=== PATIENT | female | born 1990 | race Caucasian/White ===

== ENCOUNTER 2018-07-11 07:18 | Observation (INO) | payer MEDICAID ==
[2018-07-11] MEDS ORDERED: NS 1,000 ML IV ONE ×2 (07:34→08:51)
--- NOTE | 2018-07-11 07:44 | EDPHY ---
HPI/HX/ROS/PE/MDM Narrative: CHIEF COMPLAINT: Abdominal pain, nausea, vomiting HPI: This patient is a 27 year old female who is currently 12 weeks . She complains of nausea, vomiting, and generalized abdominal pain ongoing since about 22:00 last night. Per mother, she has been unable to keep down food or liquids. Mother states the patient had nausea and diarrhea yesterday as well. 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 She had a positive urine test recently when she was enrolled in the [facility] for history of opiate abuse. She is currently in a methadone program and reportedly was able to take her pill this morning as usual. The patient does not have any care yet as she is waiting for a medicaid interview. No hematemesis, hematochezia, melena, vaginal bleeding. HPI obtained primarily from patient's mother at bedside. REVIEW OF SYSTEMS: A comprehensive 10 system review of systems is otherwise negative aside from elements mentioned in the history of present illness and medical decision making. PMH: (12 weeks ). Appendectomy. Scoliosis. SOCIAL HISTORY: Mother at bedside. Recently came back to [place] from [place]. History of opioid abuse, currently enrolled in methadone program. Nonsmoker. PHYSICAL EXAM: General:Patient is somnolent, in no acute distress. ENT:Eyes are normal to inspection. ENT inspection normal. Neck: Normal inspection. Full range of motion. Respiratory:No respiratory distress. Breath sounds normal bilaterally. Cardiovascular: Regular rate and rhythm. Strong peripheral pulses. Normal cap refill. Abdomen:The abdomen is nontender to palpation. There are no peritoneal signs. There are normal bowel sounds. Back: Normal to inspection. No tenderness to palpation. Skin: Normal color. No rash. Warm and dry. Extremities: Normal appearance. Full range of motion. Neuro: Oriented x3. Normal motor function. Normal sensory function. ED Course: 27 y/o female presents with persistent nausea and vomiting ongoing since last night. Plan for fluids, antiemetics, obstetrics ultrasound. 9:[address] Wells, radiologist. Ultrasound shows living IUP, about 10 weeks 4 days. HR 146. Patient declined a full exam, ovaries not visualized. 11:30 Reassessed. Patient is still nauseous and continues to have episodes of emesis. 12:50 Reassessed. Patient continues to feel unwell. She and her mother do not feel her symptoms can be managed adequately at home. Plan to admit. 13:14 Consulted with hospitalist service. Dr. Easton accepts admission. 13:30 Hospitalist service prefers that this patient be managed by OB as well. Plan to consult with admitting OB physician military education coordinator. 13:[address] Ortiz, dry cleaning supervisor specialist. She will consult. MDM: This patient presents primarily with vomiting and diarrhea in the setting of early and issues related to opiate addiction and methadone use. It is unclear whether the primary factor leading to symptoms is or an acute GI illness, but there is certainly a component of narcotic withdrawal as well given oral methadone use. Her abdomen is benign on my exam and she is obviously not an appropriate candidate for CT imaging of the abdomen. We rehydrated her and tried several rounds of anti-emetics but patient remains unable to tolerate PO. Given ongoing vomiting and unclear etiology of symptoms , we will admit her for further workup. At this point I have a low suspicion for appendicitis, cholecystitis or other acute pathology, but patient's workup has been somewhat limited by non-cooperation with exam (her mother essentially provides all history) and the fact that she has been unable to produce stool to allow for a GI pathogen panel to exclude norovirus etc. - Data Points Imaging Results: Imaging Impressions Obstetrics Ultrasound 07/11/18 08:08 Impression: 1. Single living intrauterine gestation with EGA 10 weeks and 4 days. Estimated date of delivery is February 02, 2018. 2. No free fluid. Ovaries not assessed. Findings discussed with terrie Rosenthalibkenneth working with physician Meir Whitney MD on 07/11/2018 at 9:13 a.m. Imaging: Discussed imaging studies w/ scallop binder Radiologist Laboratory Results: Laboratory Results 07/11/18 07:55 07/11/18 07:55 07/11/18 07/11/18 07/11/18 10:45 07:55 07:55 WBC RBC Hgb Hct MCV MCH MCHC RDW Plt Count MPV Neut % (Auto) Lymph % (Auto) [place] % (Auto) Eos % (Auto) Baso % (Auto) Nucleat RBC Rel Count Absolute Neuts (auto) Absolute Lymphs (auto) Absolute Monos (auto) Absolute Eos (auto) Absolute Basos (auto) Absolute Nucleated RBC Immature Gran % Immature Gran # RBC/WBC/PLT Morphology Platelet Estimate PT 13.8 SEC SEC (12.0-15.0) INR 1.04 (0.83-1.16) APTT 28.0 SEC SEC (23.0-38.0) Sodium Potassium Chloride Carbon Dioxide Anion Gap BUN Creatinine Estimated GFR Glucose Calcium Total Bilirubin 0.5 mg/dL mg/dL (0.1-1.4) Conjugated Bilirubin 0.5 mg/dL mg/dL (0.0-0.5) Unconjugated Bilirubin 0.0 mg/dL mg/dL (0.0-1.1) AST 18 IU/L IU/L (14-46) ALT 16 IU/L IU/L (9-52) Alkaline Phosphatase 66 IU/L IU/L (38-126) Total Protein 7.8 g/dL g/dL (6.3-8.2) Albumin 4.6 g/dL g/dL (3.5-5.0) Lipase 82 IU/L IU/L (23-300) Urine Color YELLOW Urine Appearance HAZY Urine pH 5.0 (5.0-7.5) Ur Specific [place] 1.024 (1.002-1.030) Urine Protein NEGATIVE (NEGATIVE) Urine Ketones 2+ H (NEGATIVE) Urine Blood NEGATIVE (NEGATIVE) Urine Nitrate NEGATIVE (NEGATIVE) Urine Bilirubin NEGATIVE (NEGATIVE) Urine Urobilinogen NEGATIVE EU EU (0.2-1.0) Ur Leukocyte Esterase NEGATIVE (NEGATIVE) Urine Glucose NEGATIVE (NEGATIVE) 07/11/18 07/11/18 07:55 07:55 WBC 12.88 10^3/uL H 10^3/uL (3.80-9.50) RBC 4.86 10^6/uL 10^6/uL (4.18-5.33) Hgb 12.8 g/dL g/dL (12.6-16.3) Hct 39.6 % % (38.0-47.0) MCV 81.5 fL fL (81.5-99.8) MCH 26.3 pg L pg (27.9-34.1) MCHC 32.3 g/dL L g/dL (32.4-36.7) RDW 15.3 % H % (11.5-15.2) Plt Count 306 10^3/uL 10^3/uL (150-400) MPV 10.0 fL fL (8.7-11.7) Neut % (Auto) 95.1 % H % (39.3-74.2) Lymph % (Auto) 3.5 % L % (15.0-45.0) [place] % (Auto) 0.9 % L % (4.5-13.0) Eos % (Auto) 0.0 % L % (0.6-7.6) Baso % (Auto) 0.2 % L % (0.3-1.7) Nucleat RBC Rel Count 0.0 % % (0.0-0.2) Absolute Neuts (auto) 12.25 10^3/uL H 10^3/uL (1.70-6.50) Absolute Lymphs (auto) 0.45 10^3/uL L 10^3/uL (1.00-3.00) Absolute Monos (auto) 0.12 10^3/uL L 10^3/uL (0.30-0.80) Absolute Eos (auto) 0.00 10^3/uL L 10^3/uL (0.03-0.40) Absolute Basos (auto) 0.03 10^3/uL 10^3/uL (0.02-0.10) Absolute Nucleated RBC 0.00 10^3/uL 10^3/uL (0-0.01) Immature Gran % 0.3 % % (0.0-1.1) Immature Gran # 0.04 10^3/uL 10^3/uL (0.00-0.10) RBC/WBC/PLT Morphology TNP Platelet Estimate TNP PT INR APTT Sodium 139 mEq/L mEq/L (135-145) Potassium 4.5 mEq/L mEq/L (3.5-5.2) Chloride 108 mEq/L mEq/L (97-110) Carbon Dioxide 18 mEq/l L mEq/l (22-31) Anion Gap 13 mEq/L mEq/L (6-14) BUN 13 mg/dL mg/dL (7-23) Creatinine 0.5 mg/dL L mg/dL (0.6-1.0) Estimated GFR > 60 Glucose 118 mg/dL H mg/dL (70-100) Calcium 9.7 mg/dL mg/dL (8.5-10.4) Total Bilirubin Conjugated Bilirubin Unconjugated Bilirubin AST ALT Alkaline Phosphatase Total Protein Albumin Lipase Urine Color Urine Appearance Urine pH Ur Specific [place] Urine Protein Urine Ketones Urine Blood Urine Nitrate Urine Bilirubin Urine Urobilinogen Ur Leukocyte Esterase Urine Glucose Medications Given: Discontinued Medications Sodium Chloride (Ns) 1,000 mls @ 0 mls/hr IV EDNOW ONE; Wide Open PRN Reason: Protocol Stop: 07/11/18 07:35 Last Admin: 07/11/18 07:59 Dose: 1,000 mls Sodium Chloride (Ns) 1,000 mls @ 0 mls/hr IV EDNOW ONE; Wide Open PRN Reason: Protocol Stop: 07/11/18 08:52 Last Admin: 07/11/18 08:56 Dose: 1,000 mls Sodium Chloride (Ns) 500 mls @ 0 mls/hr IV ONCE ONE PRN Reason: Wide Open Stop: 07/11/18 11:47 Last Admin: 07/11/18 11:47 Dose: 500 mls Metoclopramide HCl (Reglan Injection) 10 mg IVP EDNOW ONE Stop: 07/11/18 11:34 Last Admin: 07/11/18 11:42 Dose: 10 mg Ondansetron HCl (Zofran) 4 mg IVP EDNOW ONE Stop: 07/11/18 08:04 Last Admin: 07/11/18 08:10 Dose: 4 mg Ondansetron HCl (Zofran) 4 mg IVP EDNOW ONE Stop: 07/11/18 08:52 Last Admin: 07/11/18 08:56 Dose: 4 mg General Time Seen by Provider: 07/11/18 07:39 Initial Vital Signs: Initial Vital Signs Temperature (C) 36.8 C 07/11/18 07:24 Heart Rate 86 07/11/18 07:24 Respiratory Rate 16 07/11/18 07:24 Blood Pressure 132/90 H 07/11/18 07:24 O2 Sat (%) 93 07/11/18 07:24 O2 Delivery Mode Room Air Allergies/Adverse Reactions: No Known Allergies Allergy (Verified 07/11/18 14:17) Home Medications: Medication Instructions Recorded Dicyclomine [Bentyl 20 MG (*)] 20 mg PO QID PRN 02/13/19 Herbals/Supplements -Info Only 1 ea PO DAILY 07/11/18 Methadone HCl [Methadone HCl 10 mg 40 mg PO DAILY06 07/11/18 (*)] Ondansetron Odt [Zofran Odt 4 mg 4 mg PO BID PRN 07/11/18 (*)] Departure - Departure Disposition: [facility] Inpatient Acute Clinical Impression: Intrauterine Nausea & vomiting Qualifiers: Vomiting type: unspecified Vomiting Intractability: intractable Qualified Code( s): R11.2 - Nausea with vomiting, unspecified Condition: Fair Report Scribed for: Meir Whitney Report Scribed by: Aranza Jose Date of Report: 07/11/18 Time of Report: 07:44 Physician Review and Approval Statement: Portions of this note were transcribed by an ED scribe. I personally performed the history, physical exam, and medical decision making; and confirm the accuracy of the information in the transcribed note.
[2018-07-11] MEDS ORDERED: ONDANSETRON 4 MG/2 ML VIAL IVP ONE ×2 (08:03→08:51)
[2018-07-11 08:17] LABS: PLATELET COUNT 306 10^3/uL (150-400)
[2018-07-11 08:27] LABS: INR 1.04 (0.83-1.16); PROTIME(PATIENT) 13.8 SEC (12.0-15.0)
[2018-07-11] MEDS ORDERED: METOCLOPRAMIDE 10 MG/2 ML VIAL IVP ONE (11:33)
[2018-07-11] MEDS ORDERED: NS 500 ML IV ONE (11:46)
[2018-07-11] MEDS ORDERED: ONDANSETRON DISINTEGRATING 4 MG TAB PO PRN (14:51)
[2018-07-11] MEDS ORDERED: ACETAMINOPHEN 325 MG TAB PO PRN (14:51)
--- NOTE | 2018-07-11 14:59 | PDGENHP ---
History and Physical - Chief Complaint Nausea vomiting - History of Present Illness Patient is a 27-year-old female with past medical history of heroin abuse currently on methadone, and 10 weeks , who presented to the emergency room with 24 hr of nausea and vomiting. Patient just moved out here from [place] where she was apparently using heroin by snorting it. Three days ago she established care with a physician group here where she was started on methadone 40 mg daily. She saw her physician yesterday due to some mild nausea and vomiting and a test was obtained that was positive. She continued to have nausea and vomiting overnight and has not been able to keep anything down. She has not had any diarrhea. She does say that she has some mid epigastric abdominal pain. The pain is sharp and nonradiating and located in her mid epigastrium. The pain is worse with palpation and with retching. Her emesis is bile colored. She thinks she may have had some subjective fevers and chills over night. She denies any dysuria hematuria chest pain cough or other symptoms. She was given multiple doses of Zofran that were minimally effective in reducing her nausea and vomiting. In the emergency room an ultrasound was obtained that showed a viable intrauterine at about 10 weeks gestation. History Information - Allergies/Home Medication List Allergies/Adverse Reactions: No Known Allergies Allergy (Verified 07/11/18 14:17) Home Medications: Dicyclomine [Bentyl 20 MG (*)] 20 mg PO QID PRN 07/11/18 [Last Taken 07/10/18] Herbals/Supplements -Info Only 1 ea PO DAILY 07/11/18 [Last Taken Unknown] METHADONE HCL 07/11/18 [Last Taken Unknown] Ondansetron Odt [Zofran Odt 4 mg (*)] 4 mg PO BID PRN 07/11/18 [Last Taken 07/10] I have personally reviewed and updated: family history, medical history, social history, surgical history - Past Medical History Additional medical history: Heroin abuse - Surgical History Reports: no pertinent surgical hx - Family History Positive for: non-pertinent - Social History Smoking Status: Never smoked Review of Systems Review of Systems: Physical Exam Physical Exam: Temp Pulse Resp BP Pulse Ox 36.8 C 78 18 121/74 H 96 07/11/18 07:24 07/11/18 14:21 07/11/18 14:21 07/11/18 14:21 07/11/18 14:21 Constitutional: no apparent distress, appears nourished, not in pain Eyes: PERRL, anicteric sclera, EOMI Ears, Nose, Mouth, Throat: moist mucous membranes, hearing normal, ears appear normal, no oral mucosal ulcers Cardiovascular: regular rate and rhythym, no murmur, rub, or gallop, No edema Respiratory: no respiratory distress, no rales or rhonchi, clear to auscultation Gastrointestinal: tenderness, No guarding (Decreased bowel sounds, tender to palpation diffusely) Genitourinary: no bladder fullness, no bladder tenderness Skin: warm, normal color, no rashes or abrasions, no fluctuance, no induration, No mottled Musculoskeletal: full muscle strength, no muscle tenderness, normal joint ROM, no joint effusions Psychiatric: interacting appropriately, not anxious, not encephalopathic, thought process linear Lymph, Heme, Immunologic: no cervical LAD, no supraclavicular LAD Lab Data & Imaging Review 07/11/18 07:55 07/11/18 07:55 WBC 12.88 10^3/uL (3.80-9.50) H 07/11/18 07:55 RBC 4.86 10^6/uL (4.18-5.33) 07/11/18 07:55 Hgb 12.8 g/dL (12.6-16.3) 07/11/18 07:55 Hct 39.6 % (38.0-47.0) 07/11/18 07:55 MCV 81.5 fL (81.5-99.8) 07/11/18 07:55 MCH 26.3 pg (27.9-34.1) L 07/11/18 07:55 MCHC 32.3 g/dL (32.4-36.7) L 07/11/18 07:55 RDW 15.3 % (11.5-15.2) H 07/11/18 07:55 Plt Count 306 10^3/uL (150-400) 07/11/18 07:55 MPV 10.0 fL (8.7-11.7) 07/11/18 07:55 Neut % (Auto) 95.1 % (39.3-74.2) H 07/11/18 07:55 Lymph % (Auto) 3.5 % (15.0-45.0) L 07/11/18 07:55 [place] % (Auto) 0.9 % (4.5-13.0) L 07/11/18 07:55 Eos % (Auto) 0.0 % (0.6-7.6) L 07/11/18 07:55 Baso % (Auto) 0.2 % (0.3-1.7) L 07/11/18 07:55 Nucleat RBC Rel Count 0.0 % (0.0-0.2) 07/11/18 07:55 Absolute Neuts (auto) 12.25 10^3/uL (1.70-6.50) H 07/11/18 07:55 Absolute Lymphs (auto) 0.45 10^3/uL (1.00-3.00) L 07/11/18 07:55 Absolute Monos (auto) 0.12 10^3/uL (0.30-0.80) L 07/11/18 07:55 Absolute Eos (auto) 0.00 10^3/uL (0.03-0.40) L 07/11/18 07:55 Absolute Basos (auto) 0.03 10^3/uL (0.02-0.10) 07/11/18 07:55 Absolute Nucleated RBC 0.00 10^3/uL (0-0.01) 07/11/18 07:55 Immature Gran % 0.3 % (0.0-1.1) 07/11/18 07:55 Immature Gran # 0.04 10^3/uL (0.00-0.10) 07/11/18 07:55 RBC/WBC/PLT Morphology TNP 07/11/18 07:55 Platelet Estimate TNP 07/11/18 07:55 PT 13.8 SEC (12.0-15.0) 07/11/18 07:55 INR 1.04 (0.83-1.16) 07/11/18 07:55 APTT 28.0 SEC (23.0-38.0) 07/11/18 07:55 Sodium 139 mEq/L (135-145) 07/11/18 07:55 Potassium 4.5 mEq/L (3.5-5.2) 07/11/18 07:55 Chloride 108 mEq/L (97-110) 07/11/18 07:55 Carbon Dioxide 18 mEq/l (22-31) L 07/11/18 07:55 Anion Gap 13 mEq/L (6-14) 07/11/18 07:55 BUN 13 mg/dL (7-23) 07/11/18 07:55 Creatinine 0.5 mg/dL (0.6-1.0) L 07/11/18 07:55 Estimated GFR > 60 07/11/18 07:55 Glucose 118 mg/dL (70-100) H 07/11/18 07:55 Calcium 9.7 mg/dL (8.5-10.4) 07/11/18 07:55 Total Bilirubin 0.5 mg/dL (0.1-1.4) 07/11/18 07:55 Conjugated Bilirubin 0.5 mg/dL (0.0-0.5) 07/11/18 07:55 Unconjugated Bilirubin 0.0 mg/dL (0.0-1.1) 07/11/18 07:55 AST 18 IU/L (14-46) 07/11/18 07:55 ALT 16 IU/L (9-52) 07/11/18 07:55 Alkaline Phosphatase 66 IU/L (38-126) 07/11/18 07:55 Total Protein 7.8 g/dL (6.3-8.2) 07/11/18 07:55 Albumin 4.6 g/dL (3.5-5.0) 07/11/18 07:55 Lipase 82 IU/L (23-300) 07/11/18 07:55 Urine Color YELLOW 07/11/18 10:45 Urine Appearance HAZY 07/11/18 10:45 Urine pH 5.0 (5.0-7.5) 07/11/18 10:45 Ur Specific [place] 1.024 (1.002-1.030) 07/11/18 10:45 Urine Protein NEGATIVE (NEGATIVE) 07/11/18 10:45 Urine Ketones 2+ (NEGATIVE) H 07/11/18 10:45 Urine Blood NEGATIVE (NEGATIVE) 07/11/18 10:45 Urine Nitrate NEGATIVE (NEGATIVE) 07/11/18 10:45 Urine Bilirubin NEGATIVE (NEGATIVE) 07/11/18 10:45 Urine Urobilinogen NEGATIVE EU (0.2-1.0) 07/11/18 10:45 Ur Leukocyte Esterase NEGATIVE (NEGATIVE) 07/11/18 10:45 Urine Glucose NEGATIVE (NEGATIVE) 07/11/18 10:45 Assessment & Plan Assessment: 27-year-old female with past medical history of heroin abuse, currently on methadone, admitted with intractable nausea and vomiting Intrauterine (Acute)-human chorionic gonadotropin positive for by urine test. Ultrasound confirmed intrauterine with heartbeat of 145. Estimated gestational age of about 10 weeks 4 days. -Ob consulted for management considering she is high risk on methadone Nausea & vomiting (intractable)-likely related to , does not meet requirement for hyperemesis. Could be related to recent starting of methadone. She has a leukocytosis. I discussed the case with the emergency room physician and requested of Obstetrics be consulted. I reviewed the ultrasound which does show a viable intrauterine . -intravenous saline -p.r.n. Zofran -continue home methadone dose once confirmed (if okay with OB) -consult Ob -defer further management to Obstetrics PPX- SCDS, No heparin Fluids- IV saline Lytes- WNL Nutrition- clears Cor- Full Dispo- observation for NV
[2018-07-11] MEDS ORDERED: ACETAMINOPHEN 650 MG SUPP PR PRN (15:15)
[2018-07-11] MEDS: METOCLOPRAMIDE 10 MG/2 ML VIAL IVP SCH ×3 (17:26→23:28)
[2018-07-11] MEDS: PYRIDOXINE HCL 25 MG TAB PO SCH ×2 (17:56→23:00)
--- NOTE | 2018-07-11 19:25 | PDCONSULT ---
It Sales Executive Note: Obstetrics Consult from ED/Hospitalist service. 37 at 10w4d gestation by US done today, admitted for intractable N/V. Was found to have positive test yesterday at methadone clinic. Thought she could not get . Had a FemVue test (sonohysterogram) a few years ago at her account development specialist's office in which she was told that both of her tubes were blocked and she would never be able to get . Menses irregular - thinks she has had about 3 menses in the past 6 months. Has first appointment scheduled for this Monday in [place]. N/V started last night, and came to the ED this morning, where anti-nausea medication and IV hydration was not sufficient to stop N/V. Currently, pt is still having nausea, and occasional vomiting, but is now complaining more of upper abdominal pain and belching. Just moved here (drove) from [place] 5 days ago. Was snorting heroin daily in [place]. Started on Methadone 2 days ago, and N/V started 1 day ago. Denies any other drug use - specifically denied marijuana, cocaine, alcohol. Mentions she has had issues when withdrawing from methadone in the past. Notes she was hospitalized 2 years ago for 9 days, for vomiting, which she was told was related to severe constipation. Her last bowel movement was early this morning. No diarrhea. No urinary symptoms. No vaginal bleeding. Her upper abdominal pain is nothing like menstrual cramps. Is requesting pain medication for abdominal pain. PMH: N/V hospitalized 2 yr ago for 9 d, ? constipation Heroin addict PSH: tonsillectomy appendectomy Medications: methadone All: NKDA Soc: as above, denies tobacco/ETOH / marijuana /cocaine. Was on Heroin until 5- 6 days ago Famhx: noncontributory PE: Temp Pulse Resp BP Pulse Ox 37.5 C 84 16 139/82 H 98 07/11/18 20:00 07/11/18 20:00 07/11/18 20:00 07/11/18 20:00 07/11/18 20:00 US report reviewed - viable vuong IUP c/w 10w4d gestation Gen - drowsy but easily arousable female, belches numerous times during interaction, but burris not vomit affect - mildly flat HEENT - grossly within normal limits skin - warm, dry, no lesions on abdomen or feet CV - RRR chest - CTAB abd - soft, flat, tenderness diffusely cephalad to umbilicus with any pressure even just touching of skin. NO masses palpable except for 10 week sized uterus in lower abdomen as expected. + NABS ext - SCDs in place, no calf tenderness, no BLE edema WBC 12.88 10^3/uL (3.80-9.50) H 07/11/18 07:55 RBC 4.86 10^6/uL (4.18-5.33) 07/11/18 07:55 Hgb 12.8 g/dL (12.6-16.3) 07/11/18 07:55 Hct 39.6 % (38.0-47.0) 07/11/18 07:55 MCV 81.5 fL (81.5-99.8) 07/11/18 07:55 MCH 26.3 pg (27.9-34.1) L 07/11/18 07:55 MCHC 32.3 g/dL (32.4-36.7) L 07/11/18 07:55 RDW 15.3 % (11.5-15.2) H 07/11/18 07:55 Plt Count 306 10^3/uL (150-400) 07/11/18 07:55 MPV 10.0 fL (8.7-11.7) 07/11/18 07:55 Neut % (Auto) 95.1 % (39.3-74.2) H 07/11/18 07:55 Lymph % (Auto) 3.5 % (15.0-45.0) L 07/11/18 07:55 [place] % (Auto) 0.9 % (4.5-13.0) L 07/11/18 07:55 Eos % (Auto) 0.0 % (0.6-7.6) L 07/11/18 07:55 Baso % (Auto) 0.2 % (0.3-1.7) L 07/11/18 07:55 Nucleat RBC Rel Count 0.0 % (0.0-0.2) 07/11/18 07:55 Absolute Neuts (auto) 12.25 10^3/uL (1.70-6.50) H 07/11/18 07:55 Absolute Lymphs (auto) 0.45 10^3/uL (1.00-3.00) L 07/11/18 07:55 Absolute Monos (auto) 0.12 10^3/uL (0.30-0.80) L 07/11/18 07:55 Absolute Eos (auto) 0.00 10^3/uL (0.03-0.40) L 07/11/18 07:55 Absolute Basos (auto) 0.03 10^3/uL (0.02-0.10) 07/11/18 07:55 Absolute Nucleated RBC 0.00 10^3/uL (0-0.01) 07/11/18 07:55 Immature Gran % 0.3 % (0.0-1.1) 07/11/18 07:55 Immature Gran # 0.04 10^3/uL (0.00-0.10) 07/11/18 07:55 RBC/WBC/PLT Morphology TNP 07/11/18 07:55 Platelet Estimate TNP 07/11/18 07:55 PT 13.8 SEC (12.0-15.0) 07/11/18 07:55 INR 1.04 (0.83-1.16) 07/11/18 07:55 APTT 28.0 SEC (23.0-38.0) 07/11/18 07:55 Sodium 139 mEq/L (135-145) 07/11/18 07:55 Potassium 4.5 mEq/L (3.5-5.2) 07/11/18 07:55 Chloride 108 mEq/L (97-110) 07/11/18 07:55 Carbon Dioxide 18 mEq/l (22-31) L 07/11/18 07:55 Anion Gap 13 mEq/L (6-14) 07/11/18 07:55 BUN 13 mg/dL (7-23) 07/11/18 07:55 Creatinine 0.5 mg/dL (0.6-1.0) L 07/11/18 07:55 Estimated GFR > 60 07/11/18 07:55 Glucose 118 mg/dL (70-100) H 07/11/18 07:55 Calcium 9.7 mg/dL (8.5-10.4) 07/11/18 07:55 Total Bilirubin 0.5 mg/dL (0.1-1.4) 07/11/18 07:55 Conjugated Bilirubin 0.5 mg/dL (0.0-0.5) 07/11/18 07:55 Unconjugated Bilirubin 0.0 mg/dL (0.0-1.1) 07/11/18 07:55 AST 18 IU/L (14-46) 07/11/18 07:55 ALT 16 IU/L (9-52) 07/11/18 07:55 Alkaline Phosphatase 66 IU/L (38-126) 07/11/18 07:55 Total Protein 7.8 g/dL (6.3-8.2) 07/11/18 07:55 Albumin 4.6 g/dL (3.5-5.0) 07/11/18 07:55 Lipase 82 IU/L (23-300) 07/11/18 07:55 Urine Color YELLOW 07/11/18 10:45 Urine Appearance HAZY 07/11/18 10:45 Urine pH 5.0 (5.0-7.5) 07/11/18 10:45 Ur Specific [place] 1.024 (1.002-1.030) 07/11/18 10:45 Urine Protein NEGATIVE (NEGATIVE) 07/11/18 10:45 Urine Ketones 2+ (NEGATIVE) H 07/11/18 10:45 Urine Blood NEGATIVE (NEGATIVE) 07/11/18 10:45 Urine Nitrate NEGATIVE (NEGATIVE) 07/11/18 10:45 Urine Bilirubin NEGATIVE (NEGATIVE) 07/11/18 10:45 Urine Urobilinogen NEGATIVE EU (0.2-1.0) 07/11/18 10:45 Ur Leukocyte Esterase NEGATIVE (NEGATIVE) 07/11/18 10:45 Urine Glucose NEGATIVE (NEGATIVE) 07/11/18 10:45 Imp: 27 yo G1 at 10w4d with N/V and upper abdominal pain - unlikely related to . N/V of usually starts between 6 & 8 weeks and does not cause abdominal pain or a left shift of the WBC count. Plan: I will communicate with Hospitalist team about: Narcotics are not teratogenic and regularly used in for acute pain. I have minimal experience using narcotics in a heroin addict / methadone dependent patient - so will defer narcotic use to Hospitalist team. Tylenol fine to use in . Ambien also considered reasonable to use in and unlikely to be teratogenic. Priscilla Ortiz MD, [facility]ACOG [facility] [phone] pager
[2018-07-11] MEDS ORDERED: fentaNYL 100 MCG/2 ML INJ IVP ONE (21:21)
[2018-07-11] MEDS: oxyCODONE IR 5 MG TAB PO PRN (23:28)
[2018-07-12] MEDS ORDERED: fentaNYL 100 MCG/2 ML INJ IVP ONE (01:56)
[2018-07-12] MEDS: ONDANSETRON 4 MG/2 ML VIAL IVP PRN ×2 (03:40→20:51)
[2018-07-12] MEDS: PYRIDOXINE HCL 25 MG TAB PO SCH ×3 (04:49→17:42)
[2018-07-12] MEDS: METOCLOPRAMIDE 10 MG/2 ML VIAL IVP SCH ×3 (06:09→17:41)
[2018-07-12] MEDS ORDERED: METHADONE HCL 10 MG TAB PO SCH (06:30)
[2018-07-12 06:32] LABS: PLATELET COUNT 255 10^3/uL (150-400)
[2018-07-12] MEDS ORDERED: METOCLOPRAMIDE 10 MG TAB PO ONE (06:42)
[2018-07-12] MEDS ORDERED: METHADONE HCL 10 MG/ML UDSYR PO SCH (06:45)
--- NOTE | 2018-07-12 09:38 | ASMTCMCOM ---
CM Note CM Note Notes: Patient admitted for intractable n/v. Three days ago, she started a Methadone regime and also found out she was . Ultrasound in our ED shows an IUP at approx 10 weeks gestation. Patient is new to [place], living here with her mother, and she is currently in treatment for heroin addiction at [facility]. She will continue to follow with them as an outpatient for her Methadone regimen and counseling. Regarding the , she states that she does want to keep it although she did look to the Internet for information on and felt that she was too far along. I encouraged her to call [facility] as well as Planned since the option for surgical exists up to about 14 weeks gestation. I will pass along to the hospitalist that she was misinformed in case she wants to discuss further with him. She has an appt with [facility] at [place] tomorrow at 4:15PM. I confirmed this with their office. Case Management discharge plan: independent Date Signed: 07/12/2018 09:38 AM Electronically Signed By:Lizbeth Cook RN
[2018-07-12] MEDS: oxyCODONE IR 5 MG TAB PO PRN ×2 (11:56→17:50)
[2018-07-12] MEDS: FAMOTIDINE 20 MG/NACL 50 ML IV SCH ×2 (14:31→20:45)
--- NOTE | 2018-07-12 16:02 | SOAPPROG ---
SOAP Progress Note Assessment/Plan: Assessment: 1) 27 y/o at 10 5/7 weeks admitted with intractable N/V - improved 2) Upper abdominal pain - unlikely related to 3) h/o heroin abuse, now on Methadone Plan: Pt is obstetrically stable at this point and n/v has improved Discussed changing to a different PNV and trying OTC Unisom and Vit B6 (25 mg every 6 hours) for n/v Reviewed u/s showing SLIUP at 10 4/7 wks with [facility] 02/02/19 Pt followed by methadone clinic in [place] Pt has new Ob visit with [facility] tomorrow 07/13, pt to keep that appointment to establish care If u/s of upper abdomen is negative, pt can eat and likely be discharged home tonight 07/12/18 16:06 Subjective: Pt seen and examined. She states the last time she vomited was at 0530 this morning; still notes slight nausea. She has not eaten or drank anything for u/s of abdomen today at 1600. She is thirsty and hungry. She is c/o pain above the belly button that is constant and is getting minimal relief with Oxy 5mg given to her a few hours ago. She denies any LOF, VB or menstrual-type cramping. Objective: Vital Signs Temp Pulse Resp BP Pulse Ox 36.7 C 60 18 103/63 100 07/12/18 11:47 07/12/18 11:47 07/12/18 11:47 07/12/18 11:47 07/12/18 11:47 Laboratory Results 07/12/18 06:00 07/12/18 06:00 07/11/18 07/12/18 07/13/18 05:59 05:59 05:59 Intake Total 1876 Output Total 700 Balance 1176 PT 13.8 SEC (12.0-15.0) 07/11/18 07:55 INR 1.04 (0.83-1.16) 07/11/18 07:55 Physical Exam - Physical Exam General Appearance: WD/WN, alert, no apparent distress Abdomen: normal bowel sounds, soft, other (Mild TTP above umbilicus; no rebound or guarding; 10 week sized uterus.) Pelvic Exam: deferred Skin: normal color, warm/dry Neuro/Psych: alert, normal mood/affect, oriented x 3 ICD10 Worksheet Patient Problems: Problems Problem Status Onset Intrauterine Acute Nausea & vomiting Acute
[2018-07-12] MEDS: NS 1,000 ML IV SCH (17:42)
[2018-07-12] MEDS: DICYCLOMINE 10 MG CAP PO SCH ×2 (20:46→20:48)
[2018-07-13] MEDS: PYRIDOXINE HCL 25 MG TAB PO SCH ×3 (00:02→13:54)
[2018-07-13] MEDS: METOCLOPRAMIDE 10 MG/2 ML VIAL IVP SCH ×3 (05:19→13:54)
[2018-07-13] MEDS: NS 1,000 ML IV SCH (05:20)
[2018-07-13] MEDS: ONDANSETRON 4 MG/2 ML VIAL IVP PRN (05:26)
[2018-07-13] MEDS: DICYCLOMINE 10 MG CAP PO SCH ×2 (05:28→13:54)
[2018-07-13] MEDS ORDERED: METHADONE HCL 10 MG/ML UDSYR PO ONE (06:00)
[2018-07-13] MEDS ORDERED: METHADONE HCL 10 MG/ML UDSYR PO SCH (06:00)
[2018-07-13 08:43] LABS: PLATELET COUNT 250 10^3/uL (150-400)
[2018-07-13] MEDS: FAMOTIDINE 20 MG/NACL 50 ML IV SCH (09:56)
--- NOTE | 2018-07-13 12:40 | HOSPPROG ---
Hospitalist Progress Note Assessment/Plan: 27-year-old female with past medical history of heroin abuse, currently on methadone, admitted with intractable nausea and vomiting. Thought to be related to , but abdominal ultrasound showing acute acalculous cholecystitis. Intrauterine (Acute)-human chorionic gonadotropin positive for by urine test. Ultrasound confirmed intrauterine with heartbeat of 145. Estimated gestational age of about 10 weeks 4 days. -Ob consulted, cleared by them, has appt today at 4pm for visit Nausea & vomiting (intractable)-could be related to , but also could be related to acalculous cholecystitis. OBGYN recommending Unisom and vitamin B6. Plan for MRCP today than depending on the results discuss further with surgery for possible operative management of acute cholecystitis. -intravenous saline -p.r.n. Zofran -continue home methadone dose once confirmed (if okay with OB) -consult Ob Methadone dependence- patient just started on methadone 3 days prior to admission. In the setting of this must be maintained to avoid distress and possible spontaneous . Pharmacy is discussed the case with the methadone clinic and we are in the process of titrating her dose based on the recommendations -continue methadone -dosage per outpatient methadone clinic Acalculous cholecystitis- patient with nausea vomiting leukocytosis and abdominal pain consistent with cholecystitis. She does not have a transaminitis however. I discussed the case with the on-call surgeon who recommends MRCP to further evaluate. Depending on the results of the MRCP will dictate the course surgery wishes to take -surgery to evaluate after MRCP -treat nausea vomiting as above PPX- SCDS, No heparin Fluids- IV saline Lytes- WNL Nutrition- clears Cor- Full Dispo- inpatient for NV, ab pain, acalculous cholecystitis. Subjective: Hungry today, threw up her medications this morning. Still some abdominal tenderness. Objective: Vital Signs Temp Pulse Resp BP Pulse Ox 36.8 C 62 16 110/63 93 07/13/18 07:33 07/13/18 07:33 07/13/18 07:33 07/13/18 07:33 07/13/18 07:33 Laboratory Results 07/13/18 08:35 07/13/18 08:35 07/12/18 07/13/18 07/14/18 05:59 05:59 05:59 Intake Total 1876 1248 Output Total 700 Balance 1176 1248 PT 13.8 SEC (12.0-15.0) 07/11/18 07:55 INR 1.04 (0.83-1.16) 07/11/18 07:55 - Physical Exam Constitutional: no apparent distress, appears nourished, not in pain Eyes: PERRL, anicteric sclera, EOMI Ears, Nose, Mouth, Throat: moist mucous membranes, hearing normal, ears appear normal, no oral mucosal ulcers Cardiovascular: regular rate and rhythym, no murmur, rub, or gallop Respiratory: no respiratory distress, no rales or rhonchi, clear to auscultation Gastrointestinal: tenderness, casper's sign Genitourinary: no bladder fullness, no bladder tenderness, no renal bruits Skin: no rashes or abrasions, no fluctuance, no induration Musculoskeletal: full muscle strength, no muscle tenderness, normal joint ROM Neurologic: AAOx3, sensation intact bilaterally Psychiatric: interacting appropriately, not anxious, not encephalopathic, thought process linear Lymph, Heme, Immunologic: no cervical LAD, no supraclavicular LAD ICD10 Worksheet Patient Problems: Problems Problem Status Onset Intrauterine Acute Nausea & vomiting Acute
--- NOTE | 2018-07-13 15:07 | GHP ---
[f rep st] CONSULT DATE OF ADMISSION: 07/11/2018 Joseph Del Toro is a 27-year-old female with a history of heroin abuse, currently on methadone, who was admitted with intractable nausea and vomiting. It was thought to be related to the . An ultrasound did show some pericholecystic fluid, so the possibility of an acalculous cholecystitis was raised. Laboratories during the course of this admission went from white blood cell count of 12.8 to 15.11 and to this morning 10.6. Her hematocrit is 33. Her platelet count has dropped from 306 to 250. Her chemistries are unremarkable, and her bilirubin is totally normal as are her transaminase and alkaline phosphatase. An MRI had been performed to try to further sort out the issue. There is still a small amount of wall thickening and a small amount of pericholecystic fluid. Certainly no stones are identified. This morning on examination she is awake, alert. She certainly does not have a Mcdowell sign to examination. This is an 11-week female with nausea and vomiting, which I feel probably is most appropriate related to her . I have suggested that she be dismissed from the hospital when she is taking liquids well with antinausea medications. I do suggest that she be dispensed 20 mg of Bentyl and if she has recurrent pain, not nausea or vomiting, that she take the medication and lie on her right side in the position. If this does not resolve the issue then I suggest she return to the ER for re-evaluation. Certainly after 13 weeks she will be into the 2nd trimester and it will be safer to perform a surgical procedure if it became necessary. IMPRESSION: Nausea and vomiting of uncertain etiology, probably related to there is the possibility of an acalculous cholecystitis that has resolved. /[id number]/MODL MTDD
[2018-07-13 15:17] VITALS: BP 109/68
--- NOTE | 2018-07-13 15:20 | PDDCSUM ---
Discharge Summary Discharge Summary: Discharge diagnosis Acalculous cholecystitis associated Nausea and vomiting Methadone dependence Abdominal pain The patient is a 27-year-old female at 10 weeks and 4 days on admission who presented with nausea and vomiting with abdominal pain. A pelvic ultrasound was obtained in the emergency room which confirmed an intrauterine with age approximately 10 weeks gestation. she had just started methadone 3 days prior to admission. It was thought that her nausea vomiting was associated with her . Obstetrics was consulted who evaluated the patient and felt that her symptoms were consistent with nausea associated with . She was started on Zofran, Reglan and her home dose of methadone was continued. We contacted her outpatient methadone clinic who recommended up titration of methadone from 40 mg to 50 mg on day 2 and then 60 mg on day 3. She continued to have abdominal pain and so an abdominal ultrasound was obtained. The abdominal ultrasound was read as acalculous cholecystitis. General surgery was consulted who recommended MRCP evaluation. MRCP for found similar findings consistent with acalculous cholecystitis including pericholecystic fluid and gallbladder wall thickening with a normal diameter common bile duct. She had no Mcdowell sign on evaluation and general surgery felt that watchful waiting was the best approach given her minimal symptoms and normal liver function tests and a down trending white count. On the day of discharge she had no further nausea and vomiting and her abdominal pain essentially resolved. General surgery felt comfortable discharge and explained to the patient that her symptoms were to return should return to the [facility] ER immediately. She had a obstetrics appointment on the day of discharge. She was discharged in good condition to follow up with OB in her primary care physician along with the methadone Clinic for further up titration of her methadone. Discharge disposition Home in good condition Medications Reglan 10 mg 3 times a day p.r.n. Nausea vomiting Other medications were unchanged I spent over 30 min on the discharge of this patient
--- NOTE | 2018-07-13 15:39 | ASMTLACE ---
JONIE Length of stay for Answers: 2 days current admission Acuity / Level of Answers: No Care: Did the patient have an inpatient admission? # of Emergency department Answers: 1-2 visits in the last 6 months Social determinants Answers: History of substance abuse (ETOH, street drugs, prescription drugs, etc.) Score: 6 Date Signed: 07/13/2018 03:38 PM Electronically Signed By:Lizbeth Cook RN
[2018-07-13 17:58] LABS: HEPATITIS C ANTIBODY TOTAL NEGATIVE (NEGATIVE)
[2018-07-14] MEDS ORDERED: METHADONE HCL 10 MG/ML UDSYR PO SCH (06:00)
[2018-07-15] MEDS ORDERED: METHADONE HCL 10 MG/ML UDSYR PO SCH (06:00)
== END 2018-07-13 16:04 | disposition home or self-care (01) ==
LOC: F1N 14:51
PROVIDERS: ADMIT Internal Medicine; ATTEND Internal Medicine
DX: K81.9 Cholecystitis, unspecified (principal); O21.0 Mild hyperemesis gravidarum; O99.321 Drug use complicating pregnancy, first trimester; F11.20 Opioid dependence, uncomplicated; Z3A.10 10 weeks gestation of pregnancy
CPT/HCPCS: 74181; 76700; 76801; G0378; 96374; G0472; J1200; J2405; J2765; J3010

== ENCOUNTER → 2018-10-01 | Outpatient (CLI) | payer MEDICAID | LOC: FLAB 09:33 | PROVIDERS: ATTEND Obstetrics & Gynecology | DX: O43.122 Velamentous insertion of umbilical cord, second trimester (principal); O99.322 Drug use complicating pregnancy, second trimester; Z3A.22 22 weeks gestation of pregnancy ==

== ENCOUNTER → 2018-10-11 | Outpatient (CLI) | payer MEDICAID | LOC: FIMAGING 11:43 | PROVIDERS: ATTEND Obstetrics & Gynecology | DX: Z36.86 Encounter for antenatal screening for cervical length (principal); Z3A.23 23 weeks gestation of pregnancy; O26.872 Cervical shortening, second trimester; O99.322 Drug use complicating pregnancy, second trimester ==

== ENCOUNTER 2018-10-21 10:32 | Observation (INO) | payer MEDICAID | END 2018-10-21 14:05 | disposition home or self-care (01) | LOC: FLD 10:32 ==